=== PATIENT | male | born 1950 | race Caucasian/White ===

== ENCOUNTER 2016-12-10 10:02 | Inpatient (IN) | payer OTHER, MEDICARE ==
[2016-11-27 13:39] LABS: BASOPHILS 0.4 %; BASOPHILS ABSOLUTE 0.02 10/3/uL (0.0-0.16); EOSINOPHILS 10.4 %; EOSINOPHILS ABSOLUTE 0.51 10/3/uL (0.0-0.53); IMMATURE GRANULOCYTES 0.2 %; IMMATURE GRANULOCYTES ABSOLUTE 0.01 10/3/uL (0.0-0.11); LYMPHOCYTES 21.1 %; LYMPHOCYTES ABSOLUTE 1.04 10/3/uL (0.67-4.30); MEAN CORPUS HGB CONC 34.4 g/dL (32.0-36.0); MEAN CORPUSCULAR HEMOGLOB 30.4 pg (26.0-34.0); MEAN PLATELET VOLUME 11.7 fL (9.2-13.0); MONOCYTES 6.3 %; MONOCYTES ABSOLUTE 0.31 10/3/uL (0.21-1.20); NEUTROPHILS 61.6 %; NEUTROPHILS ABSOLUTE 3.03 10/3/uL (2.02-8.40); RBC DISTRIBUTION WIDTH 14.2 % (12.0-16.0); RED CELL COUNT 4.96 10/6/uL (4.7-6.1); WHITE BLOOD CELLS 4.9 10/3/uL (4.5-10.5)
[2016-11-27 13:40] LABS: HEMATOCRIT 43.9 % (40.0-51.0); HEMOGLOBIN 15.1 g/dL (13.6-17.8); MANUAL DIFF NO %; MEAN CORPUSCULAR VOLUME 88.5 fL (80-100); PLATELET COUNT 105 10/3/uL (150-400)
[2016-11-27 14:07] LABS: A/G RATIO 1.5 (0.7-1.9); ALBUMIN 4.1 G/DL (3.5-5.0); ALKALINE PHOSPHATASE 69 U/L (45-117); BUN (BLOOD UREA NITROGEN) 24 MG/DL (6-23); CHLORIDE, SERUM 105 MMOL/L (96-112); CO2 (CARBON DIOXIDE) 30 MMOL/L (24-34); CREATININE 1.16 MG/DL (0.70-1.30); GFR AFRICAN AMERICAN 76 ML/MIN (>=60); GFR NON AFRICAN AMERICAN 65 ML/MIN (>=60); GLOBULIN 2.8 G/DL (2.5-4.1); GLUCOSE, SERUM 131 MG/DL (60-99); SGOT(AST) 20 U/L (5-40); SGPT(ALT) 30 U/L (5-65); SODIUM, SERUM 142 MMOL/L (135-148); TOTAL BILIRUBIN 1.6 MG/DL (0-1.2); TOTAL PROTEIN 6.9 G/DL (6.0-8.5)
[2016-11-27 14:08] LABS: POTASSIUM, SERUM 4.5 MMOL/L (3.5-5.3)
[2016-11-27 14:10] LABS: ASCORBIC ACID (UR NOT ORDER) NEG (NEG); BILIRUBIN, URINE NEGATIVE (NEG); KETONE, URINE NEGATIVE (NEG); LEUKOCYTE ESTERASE(NOT OR NEG (NEG); WBC (NOT ORDERED) (RFLEX) 1 (0-5)
--- NOTE | ~2016-12-10 | OP ---
Record Of Operation [facility] [address] [place]. 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 PROCEDURE: Right total knee revision arthroplasty. INDICATION: A 66-year-old male, who has right total knee done elsewhere, has revisions, has had severe loosening and instability, and severe recurrent swelling, it has become incapacitating. He has clear evidence of loosening femoral and tibial components with displacement and bony overgrowth of the patella. He was indicated for revision total knee arthroplasty. DESCRIPTION OF PROCEDURE: The patient was taken to the operating room and placed supine on the table in normal fashion without incident. General anesthetic was induced per the anesthesiologist. The patient was carefully positioned, padded, prepped, and draped in normal sterile fashion. Right lower extremity was exsanguinated and tourniquet inflated to 350. Sharp dissection was made through the old incision with electrocautery through the fat. Sharp quad splitting approach was carried out. Benign-appearing fluid was sent for cultures and Gram stain. Patella was subluxed. Posterior synovial tissue that was abundant throughout the joint with hypertrophic granulation was resected. The femoral and tibial components were easily removed with flexible osteotome after taking out the liner. There was abundant granulation tissue and obvious osteolysis and loosening all around the femoral component and up in the femoral canal. The tibial tray came off leaving the stent behind. I removed cement collar that was around the proximal aspect of this offset stem, which then made it removable with a vice bookstore clerk. Sequential reamers were used to a 20 and both the femur and tibia after using the Yashira revision instruments to debride the canal. Intramedullary guides were used to cut the proximal tibia and distal femur. To get flexion and extension balance back, required 16-mm distal augments. I opted for 10-mm tibial augments as well because the space was substantial between the distal femur and proximal tibial cuts. With trial components in place, there was excellent medial and lateral balance and excellent flexion and extension balance. 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 It was easily removed with an oscillating saw, redrilled with the patella drill guide. Granulation tissue and overgrown bone were debrided with electrocautery and rongeur. With the trial patella in place, there was excellent patellar tracking and all surfaces were copiously irrigated with pulsatile lavage and dried. Vacuum- mixed cement premixed with antibiotic was pressurized in the tibia. Tibial component was placed, impacted, and excess cement removed. Cement was pressurized in the femur and placed on the posterior runners of the femoral component, which was placed, impacted, and excess cement removed. Knee brought out in extension on a trial spacer. Cement was pressurized in the patella. The patellar component placed, held with a clamp, and excess cement removed. Once all cement was hardened, the knee was taken through range of motion. Further extruded cement was removed with small osteotome. The actual insert was then placed, impacted, and checked to make sure it was down snug. The wound was irrigated, closed, and dressed Record Of Operation [facility] [id number] [facility] [place]. [address] NAME: TAMICA KOHLER : 50 STATUS : ADM IN [facility]#: [id number] AGE: 66 ADM/REG DATE : 12/10/16 MR#: [id number] REPORT SERV DATE: 12/10/16 DICTATED BY: MARI ZUNIGA DATE: 12/10/16 REPORT STATUS : Draft TRANSCRIBED BY: MODL DATE: 12/10/16 sterilely in a layered fashion over a medium ConstaVac drain superolaterally. COMPLICATIONS: None. SPECIMENS: Cultures and removed components. ESTIMATED BLOOD LOSS: Trace. WTB/MODL Smiley Zuniga M.D. / [id number] CC: Smiley Zuniga M.D.
[~2016-12-10 10:02] MED LIST: ASA5GR PO; ASAB PO; BENICAR20 PO; CELEXA20 PO; GLUCOPHAGE1000 MG PO; GLUCPH PO; LAM250 PO; NAP500 PO; PRIN10 PO; VICTOZA18 MG/3 ML SC; ZOCOR20 PO; ZOCOR40 PO
[2016-12-11 06:09] LABS: HEMOGLOBIN 12.3 g/dL (13.6-17.8)
[2016-12-11 06:18] LABS: INTERNATIONAL NORMAL RATI 1.1 UNITS (-); PROTIME (NOT ORD) 14.4 SEC (12.0-14.5)
[2016-12-11 06:21] LABS: HEMATOCRIT 36.8 % (40.0-51.0)
[2016-12-11 06:25] LABS: BUN (BLOOD UREA NITROGEN) 24 MG/DL (6-23); CALCIUM, SERUM 8.2 MG/DL (8.5-10.4); CHLORIDE, SERUM 101 MMOL/L (96-112); CO2 (CARBON DIOXIDE) 30 MMOL/L (24-34); CREATININE 1.26 MG/DL (0.70-1.30); GFR AFRICAN AMERICAN 68 ML/MIN (>=60); GFR NON AFRICAN AMERICAN 59 ML/MIN (>=60); GLUCOSE, SERUM 135 MG/DL (60-99); POTASSIUM, SERUM 4.6 MMOL/L (3.5-5.3); SODIUM, SERUM 140 MMOL/L (135-148)
[2016-12-12 05:34] LABS: HEMATOCRIT 35.6 % (40.0-51.0); HEMOGLOBIN 12.4 g/dL (13.6-17.8)
[2016-12-12 05:42] LABS: INTERNATIONAL NORMAL RATI 1.2 UNITS (-); PROTIME (NOT ORD) 14.6 SEC (12.0-14.5)
[2016-12-12] MEDS ORDERED: C5 (09:16)
[2016-12-12] MEDS ORDERED: PCET PO (09:16)
== END 2016-12-12 10:58 | disposition home or self-care (01) | DRG 468 ==
LOC: SDC/OF 10:02 → PACU 15:31 → 3JRC 16:27
PROVIDERS: Specialist
PROC: 3E0T3CZ (ICD-10-PCS; 2016-12-10)
PROC: 0SWC0JZ Revision of Synthetic Substitute in Right Knee Joint, Open Approach (ICD-10-PCS; principal; 2016-12-10 11:45)
DX: T84.032A Mechanical loosening of internal right knee prosthetic joint, initial encounter (principal); I10 Essential (primary) hypertension; Z79.82 Long term (current) use of aspirin; Z79.84 Long term (current) use of oral hypoglycemic drugs; Z79.899 Other long term (current) drug therapy; E11.9 Type 2 diabetes mellitus without complications; E78.5 Hyperlipidemia, unspecified; G47.33 Obstructive sleep apnea (adult) (pediatric); Z83.3 Family history of diabetes mellitus
CPT/HCPCS: 36415; 71020; 80048; 80053; 81001; 82962; 85014; 85018; 85025; 85610; 86850; 86900; 86901; 87015; 87070; 87075; 87102; 87116; 87205; 87641; 88300; 88304; 88311; 93005; 97116-GP; 97150-GP; 97161-GP; 97165-GO; A9270-GY; C1776; J0690; J1885; J2250; J2274; J2405; J2710; J2795; J3010